=== PATIENT | male | born 1960 | race Caucasian/White ===

== ENCOUNTER 2020-01-18 12:07 | Outpatient (CLI) | payer BC, SELFPAY ==
--- NOTE | ~2020-01-18 | MR_ITS ---
EXAMINATION: MR shoulder RT w con DATE: 01/18/2020 14:26 INDICATION: Superior right glenoid labral lesion presenting with right shoulder pain and limited rang e of motion TECHNIQUE: Magnetic resonance imaging (MRI) of the right shoulder was performed following intra-george cular gadolinium contrast injection and without intravenous contrast. Details of the glenohumeral andreea nt injection have been dictated separately. Sequences included axial T2-weighted FS FSE, axial T1-we ighted FS FSE, coronal oblique T1-weighted FS FSE, coronal oblique T2-weighted FSE, sagittal T2-weigh arti FS FSE, sagittal T1-weighted FSE, and ABER (abduction external rotation) T1-weighted FS FSE. COMPARISON: None. FINDINGS: Coracoacromial arch: Type II acromion. Moderate-sized subacromial spur at the anterior acromial insertion of the otherwise normal coracoacromial ligament. Mild acromioclavicular osteoarthritis with small inferiorly directed osteophytes which remains from the underlying supraspinatus by a thin intervening fat plan e. Rotator cuff: Mild supraspinatus and infraspinatus tendinopathy without discrete tear. The subscapularis and teres minor tendons are normal. Normal rotator cuff muscle bulk and signal. Biceps tendon, glenoid labrum and glenohumeral cartilage: Long head of the biceps tendon is intact. Increased intrasubstance signal in the anterosuperior gleno id labrum consistent with degenerative tearing. More well-defined linear contrast-filled tear plane a t the base of the anterior inferior labrum extending from the 2:30-5:30 position. There is additional intrasubstance degenerative tearing at the anteroinferior labrum as well as a partial tear of the mi ddle glenohumeral ligament. Additional more subtle degenerative tearing at the 10-o'clock position of the posterior superior glenoid labrum. There is a partial-thickness delaminating chondral flap tear at the anteroinferior glenoid consistent with a glenoid labral articular defect (GLAD) lesion. There is an irregular contour to the anterior rim of the glenoid which could represent secondary degenerati ve osteophytes or an old healed Bankart fracture. There is some additional chondral fissuring without degenerative subchondral changes along the inferior glenoid. There is partial thickness cartilage lo ss with mild chondral surface regularity along the cephalad aspect of the humeral head. Bones and other: Normal marrow signal with no edema, fracture or abnormal marrow replacing process. No abnormal fluid signal in the subacromial/subdeltoid bursa to suggest bursitis. IMPRESSION: 1. Mild glenohumeral osteoarthritis with relatively diffuse labral degeneration spurring the posterio r inferior labrum and with more focal GLAD lesion at the anteroinferior glenoid where there is also s uggestion of a possible old healed Bankart fracture. 2. Mild supraspinatus and infraspinatus tendinopathy without discrete tear. 3. Mild acromioclavicular osteoarthritis. Reviewed, dictated and finalized at location H. CHBOARD OPERATOR RECEPTIONIST IMPRESSION: 1. Mild glenohumeral osteoarthritis with relatively diffuse labral degeneration spurring the posterior inferior labrum and with more focal GLAD lesion at the anteroinferior glenoid where there is also suggestion of a possible old healed Bankart fracture. 2. Mild supraspinatus and infraspinatus tendinopathy without discrete tear. 3. Mild acromioclavicular osteoarthritis.
--- NOTE | ~2020-01-18 | XR_ITS ---
EXAMINATION: XR fl inj shoulder RT - MR/CT DATE: 01/18/2020 13:27 INDICATION: Right shoulder superior glenoid labrum lesion. No prior dislocation or surgery. TECHNIQUE: A time-out was performed to verify the patient's name, date of , and procedure to b e performed. The procedure including the risks, benefits, and alternatives was discussed with the pat ient. Risks discussed included bleeding and infection. The patient understood the risks and agreed to proceed. The skin overlying the right glenohumeral joint was prepped and draped in usual sterile fas hion. Anesthetic was administered with 1% lidocaine subcutaneously. A 22 G needle was advanced unde r fluoroscopic guidance into the joint. Subsequently, injectate consisting of 12 mL of 1:200 Multiha nce, 1:4 1% lidocaine, and 1:4 Omnipaque 240 was instilled. The needle was removed and the entry sit e was cleaned and dressed. There were no immediate complications. Fluoroscopy exposure time was 0.1 minutes. The total number of images was 3. FINDINGS: Real-time fluoroscopy demonstrates the needle and contrast in the right glenohumeral joint. IMPRESSION: 1. Successful right glenohumeral joint injection of contrast for subsequent MR arthrography. Reviewed, dictated and finalized at location A. MOTIVE PAINTER
== END 2020-01-18 12:08 | disposition home or self-care (01) ==
PROVIDERS: Visit Provider Orthopaedic Surgery Hand Surgery
DX: S43.431A Superior glenoid labrum lesion of right shoulder, initial encounter (principal); M19.011 Primary osteoarthritis, right shoulder
CPT/HCPCS: 23350; 73222; 77002; A9577

== ENCOUNTER 2020-03-30 14:03 | Outpatient (RCR) | payer BC, SELFPAY ==
--- NOTE | 2020-03-30 15:10 | PTOPEVAL ---
Thank you for referring Gage Zuluaga to [facility].? The patient is scheduled to be seen for therapy? ____x/week for ___ weeks. Please review, sign, date and return this plan of care XIMENA. I agree with and certify that the following plan of care is medically necessary. Referring Physician Date Admitting Provider: Attending Provider: Ryne Santana, MD Referring Provider: *PT Outpatient Evaluation Start: 03/30/20 14:04 Freq: Status: Active Protocol: Document 03/30/20 14:04 ACR (Rec: 03/30/20 15:10 ACR [id number]) Therapy Assessment Status Assessment Status Assessment Status Evaluation Evaluation Information Problem Diagnosis R shoulder pain, bicep tenodesis and labral repair Onset 02/15/20 Subjective Information Patient states he tripped and Query Text:As Reported By Patient/ fell in April. Due to COVID-19 Family he waited to go to the doctor until December 2019. The MD performed an X-ray and MRI which showed a torn labrum and full tear of the biceps. He underwent surgery on 02/15/20 for bicep reattachment and clean up the labrum. He was in a sling for 2 weeks. He was told not to lift more than a glass of water. 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 He has been off work since the surgery. Patient's goal is to get ROM back. Patient states the pain is still waking him up because it is aching all of the time. Prior Level of Function Activity Level (Last 3 Months) Occupation implementation project manager at [employer] Hand Dominance Left Activity of Daily Living Ability Independent Indoor/Home Mobility Independent Community Mobility Independent Stairs Ability Independent Functional Cognition (Planning, Shopping Independent , Taking Medications) Cooking Yes Cleaning Yes Laundry Yes Shopping Yes Driving Yes Pain Assessment Timing of Pain Assessment Timing of Pain Assessment Assessment Pain Scale Pain Scale Used Numeric (1 - 10) Self Report Pain Assessment Right Shoulder(s) Reported Pain Level
--- NOTE | 2020-04-11 10:13 | PCPTNOTE ---
Mr. Zuluaga has attended a total of 6 treatment sessions. In this time treatment has mainly focused on AROM and PROM techniques for the right shoulder. He was transitioned to light strengthening activities on this date. Pt. currently presents with 150 degrees right shoulder flexion AROM, 80 degrees of right shoulder ER AROM and 50 degrees right shoulder IR AROM. He presents with 3+/5 right shoulder flexion strength, 4+/5 right shoulder IR strength and 4/5 right shoulder ER strength. We will continue with the pt. current POC advancing strengthening techniques as indicated. Thank you for the referral of this patient and feel free to contact me with any questions. Gage Daley, [facility]
== END 2020-05-02 10:14 | disposition home or self-care (01) ==
LOC: CHSPT 14:03
PROVIDERS: Visit Provider Orthopaedic Surgery Hand Surgery
DX: M25.511 Pain in right shoulder (principal)
CPT/HCPCS: 97014; 97110; 97161; G0283

== ENCOUNTER 2021-11-22 12:51 | Emergency (ER) | payer BC, SELFPAY ==
--- NOTE | ~2021-11-22 | XR_ITS ---
XR chest 1V portable 11/22/2021 13:25 Indication: Chest pain Procedure: AP portable chest Comparison: No prior studies for comparison. Findings: Heart size normal. There is a prominent left hilum. Consider lymphadenopathy. Heart size no rmal. No focal pneumonia, pleural effusion or pneumothorax. Impression: 1: Prominent left hilum. Consider correlation with contrast-enhanced CT to exclude lymphadenopathy. Reviewed, dictated and finalized at location B. Impression: 1: Prominent left hilum. Consider correlation with contrast-enhanced CT to excl ude lymphadenopathy.
--- NOTE | ~2021-11-22 | CT_ITS ---
EXAMINATION: CTA chest PE protocol DATE: 11/22/2021 14:28 INDICATION: Chest pressure. Shortness of breath. TECHNIQUE: Computed tomography angiography (CTA) of the chest was performed with 100 mL Omnipaque-350 intravenous contrast timed to evaluate the pulmonary arteries. Coronal maximum intensity projection 3D-reconstructions were created by the technologist. Automated exposure control and iterative reconst ruction technique were employed. The dose-length product was 998.63 mGy-cm. COMPARISON: Chest single view 11/22/2021 FINDINGS: There is mild atelectasis bilaterally. No pleural effusion. The heart demonstrates right ve ntricular enlargement, consistent with right heart strain. No pericardial effusion. There are acute p ulmonary emboli involving all lobes including a saddle embolus in main pulmonary artery. There is dif fuse hepatic steatosis. There is a 14 mm mass in right adrenal gland measuring low-attenuation, consi stent with an adenoma. There is mild chronic anterior wedging of multiple vertebral bodies. There is mild thoracic spondylosis. IMPRESSION: 1. Extensive acute pulmonary emboli with right heart strain. I called this result to Dr. Colón. Reviewed, dictated and finalized at location A. IMPRESSION: 1. Extensive acute pulmonary emboli with right heart strain. I called this resu lt to Dr. Colón.
[2021-11-22 12:53] VITALS: BP 147/86; PULSE 98; RESP 18; TEMP 36.3; O2SAT 92
--- NOTE | 2021-11-22 13:04 | ECG_ITS ---
Measurements Intervals [place] Rate: 98 P: 60 WA: 147 QRS: 46 QRSD: 126 T: 10 QT: 359 QTc: 459 Interpretive Statements SINUS RHYTHM CONSIDER INFERIOR INFARCT, AGE INDETERMINATE ABNORMAL ECG NO PREVIOUS ECG AVAILABLE FOR COMPARISON Electronically Signed On 11-22-2021 16:48:37 CDT by Benson Gaines D.O.
--- NOTE | 2021-11-22 13:21 | ED.GENADULT ---
HPI - General Adult General Chief complaint: Arrhythmia/Palpitations Stated complaint: SOB, heart feels funny for past 20 minutes Time Seen by Provider: 11/22/21 13:01 History of Present Illness HPI narrative: Gage is a 61M with no known PMH that presented to the ED with chest palpitations. It started 30 minutes ago. He had palpitations associated with SOB, nausea and lightheadedness. It is improving. There was no syncope. His father did have stents placed but he is unsure of what age. Related Data Home Medications Medication Instructions Recorded Confirmed No Home Medications 11/22/21 11/22/21 Allergies Allergy/AdvReac Type Severity Reaction Status Date / Time No Known Allergies Allergy Verified 11/22/21 13:04 Review of Systems Review of Systems: All systems reviewed & are unremarkable except as noted in HPI and below Exam Const: General: healthy appearing and no acute distress Nutritional Appearance: well nourished Orientation/consciousness: patient oriented x3 Limitations: no limitations HENMT: Head: normal to inspection Ears: external ears normal Eyes: Conjunctivae: conjunctivae normal Pupils: Equal, round and reactive pupils present EOM: EOMs intact bilaterally Neck: Neck: normal visual inspection Chest: Chest palpation & inspection: normal inspection of the chest Other: No TTP Resp: Effort & Inspection: normal respiratory effort Auscultation: clear to auscultation bilaterally Cardio: Rate: regular rate Rhythm: regular rhythm GI: GI Palp: Yes Soft to palpation and No Tenderness to palpation present (GI) Back/Spine/Pelvis: Back: no CVA tenderness Skin: General skin exam: normal color Rashes: no rashes Neuro: General: patient oriented x3 and moves all extremities Extrem: General: normal to inspection Psych: Mental Status: mental status grossly normal Course Course Emergency Course: Ordered labs, EKG, CXR, aspirin and nitro EKG showed sinus tachycardia with a rate of 98, normal axis, no ST elevation or depression, Q waves in II, III EXAMINATION: CTA chest PE protocol DATE: 11/22/2021 14:28 INDICATION: Chest pressure. Shortness of breath. TECHNIQUE: Computed tomography angiography (CTA) of the chest was performed with 100 mL Omnipaque-350 intravenous contrast timed to evaluate the pulmonary arteries. Coronal maximum intensity projection 3D-reconstructions were created by the technologist. Automated exposure control and iterative reconstruction technique were employed. The dose-length product was 998.63 mGy-cm. COMPARISON: Chest single view 11/22/2021 FINDINGS: There is mild atelectasis bilaterally. No pleural effusion. The heart demonstrates right ventricular enlargement, consistent with right heart strain. No pericardial effusion. There are acute pulmonary emboli involving all lobes including a saddle embolus in main pulmonary artery. There is diffuse hepatic steatosis. There is a 14 mm mass in right adrenal gland measuring low-attenuation, consistent with an adenoma. There is mild chronic anterior wedging of multiple vertebral bodies. There is mild thoracic spondylosis. IMPRESSION: 1. Extensive acute pulmonary emboli with right heart strain. I called this result to Dr. Colón. Manjinder declined admission d/t right heart strain. [facility], [facility] and [facility] were contacted for transfers to higher level of care. I called [facility] transfer line who called back with Dr. Muse at [phone] and accepted the transfer to [facility] [place] but there was a bed issue shortage. [facility] was contacted and Linda Waldron NP accepted on behalf of Dr. Shaw. The called back with a bed Vital Signs Vital signs: Vital Signs Temperature 97.3 F L 11/22/21 12:53 Pulse Rate 98 11/22/21 12:53 Respiratory Rate 18 11/22/21 12:53 Blood Pressure 147/86 H 11/22/21 12:53 Pulse Oximetry 92 11/22/21 12:53 Temperature 97.8 F 11/22/21 18:32 Pulse Rate 87 11/22/21 18:32 Respiratory Rate 20 11/22
[2021-11-22 13:39] LABS: Basophils Absolute Auto 0.02 K/mm3 (0.00-0.10); Basophils Percent Auto 0.2 % (0.0-1.0); Eosinophils Percent Auto 1.1 % (1.0-6.0); Hematocrit 46.4 % (40.0-54.0); Hemoglobin 16.6 g/dL (14.0-18.0); Immature Granulocyte Absolute 0.03 K/mm3 (0.00-0.00); Immature Granulocyte Percent A 0.3 % (0.0-0.0); Lymphocytes Absolute Auto 2.07 K/mm3 (1.10-4.50); Lymphocytes Percent Auto 23.2 % (18.0-42.0); Mean Corpuscular HGB Conc 35.8 g/dL (32.0-36.0); Mean Corpuscular Hemoglobin 31.9 pg (27.0-31.0); Mean Corpuscular Volume 89.1 fL (78.0-102.0); Mean Platelet Volume 9.7 fl (8.7-11.0); Monocytes Absolute Auto 0.58 K/mm3 (0.10-0.90); Monocytes Percent Auto 6.5 % (2.0-11.0); Neutrophils Absolute Auto 6.1 K/mm3 (1.7-7.2); Neutrophils Percent Auto 68.7 % (50.0-70.0); Platelet Count Result 219 K/mm3 (150-420); Red Blood Count 5.21 M/mm3 (4.70-6.10); Red Cell Distribution Width 11.9 % (11.6-14.4); White Blood Count 8.9 K/mm3 (4.8-10.8)
[2021-11-22 13:40] VITALS: O2SAT 87
[2021-11-22] MEDS: ASPIRIN 81 MG CHEWABLE TABLET 324 MG PO (13:41)
[2021-11-22] MEDS: NITROGLYCERIN SL 0.4 MG TABLET SUBLINGUAL (13:41)
--- NOTE | 2021-11-22 13:45 | PC.NURSE ---
family in room with pt at this time. call lemon in reach. enc to call for assist as needed
[2021-11-22 13:47] VITALS: BP 113/74; PULSE 103; RESP 24; O2SAT 94
[2021-11-22 13:57] LABS: Amphetamine Screen Urine Negative (Negative); Barbiturate Screen Urine Negative (Negative); Benzodiazepines Screen Urine Negative (Negative); Cannabinoid Screen Urine Negative (Negative); Cocaine Screen Urine Negative (Negative); Methadone Screen Urine Negative (Negative); Opiate Screen Urine Negative (Negative); Phencyclidine Screen Urine Negative (Negative)
[2021-11-22 14:05] LABS: Alanine Aminotransferase 46 U/L (16-63); Albumin Level 3.9 g/dL (3.4-5.0); Alkaline Phosphatase 110 U/L (46-116); Anion Gap 11 mmol/L (8-16); Aspartate Amino Transferase 28 U/L (15-37); Bilirubin,Total 1.5 mg/dL (0.00-1.00); Blood Urea Nitrogen 16 mg/dL (7-18); Calcium 9.2 mg/dL (8.5-10.1); Carbon Dioxide 26 mmol/L (21-32); Chloride 101 mmol/L (98-108); Estimated CRCL calculation 80 ml/min; Estimated Glomerular Filt Rate > 60; Glucose 313 mg/dL (70-99); Magnesium 2.2 mg/dL (1.8-2.4); Osmolality Calculated 299 mOsm/kg (285-295); Potassium 3.8 mmol/L (3.5-5.1); Sodium 138 mmol/L (136-145); Total Protein 8.1 g/dL (6.4-8.2); Troponin I 41.8 ng/L (0.00-60.4)
[2021-11-22 14:06] LABS: NT Pro B Type Natriuretic Pept 60 pg/mL (0-125); Thyroid Stimulating Hormone 1.56 uIU/mL (0.36-3.74)
[2021-11-22] MEDS: ENOXAPARIN 1 MG/KG 128 MG SUB-Q (14:56)
[2021-11-22 14:57] VITALS: BP 127/80; PULSE 102; RESP 20; TEMP 36.3; O2SAT 99
[2021-11-22 17:28] LABS: SARS-CoV-2 Ag Negative (Negative)
[2021-11-22 18:32] VITALS: BP 134/84; PULSE 87; RESP 20; TEMP 36.6; O2SAT 97
== END 2021-11-22 19:05 | disposition short-term general hospital (02) ==
PROVIDERS: Emergency Provider Family Medicine
DX: I26.99 Other pulmonary embolism without acute cor pulmonale (principal); Z20.822 Contact with and (suspected) exposure to COVID-19; R06.02 Shortness of breath
CPT/HCPCS: 36415; 71045; 71275; 80053; 80307; 83735; 83880; 84443; 84484; 85025; 87426; 93005; 96372; 99285; A9270; C9803; J1650; Q9967